=== PATIENT | female | born 1985 | race Caucasian/White ===

== ENCOUNTER 2021-02-12 05:49 | Day surgery (SDC) | payer BC ==
[2021-02-07 17:34] LABS: Hemoglobin 13.7 g/dL (12.0-15.5); Mean Corpuscular HGB CONC 33.3 g/dL (32.0-36.0); Mean Corpuscular Hemoglobin 30.4 pg (27.0-33.0); Mean Corpuscular Volume 91.6 fl (81.6-98.3); Mean Platelet Volume 9.6 fl (7.4-10.4); Platelet Count 244 10x3/uL (150-450); RBC Distribution Width 13.2 % (11.5-14.5); White Blood Cell (WBC) Count 6.6 10x3/uL (3.5-10.5)
[2021-02-07 17:38] LABS: BHCG - Serum Negative (NEGATIVE); Pregs Control Background? CLEAR/WHITE (CLR/WHITE); Pregs Control Bar Appear? YES (CONTROL BAR)
[2021-02-08 12:35] LABS: SARS-CoV-2 PCR by NAA Not Detected (NotDetected)
[2021-02-09 13:49] VITALS: BMI 31.9
[2021-02-12] MEDS ORDERED: CeleCOXIB 100 MG CAP ONE (06:25)
[2021-02-12] MEDS ORDERED: Gabapentin 300 MG CAP ONE (06:25)
[2021-02-12] MEDS ORDERED: Fentanyl 100 MCG/2 ML VIAL ONE (06:39)
[2021-02-12] MEDS ORDERED: PROPOFOL 20 ML ONE (06:39)
[2021-02-12] MEDS ORDERED: Lidocaine 2% PF 5 ML VIAL ONE (06:42)
[2021-02-12] MEDS ORDERED: Dexamethasone 4 mg/ml Vial ONE (06:42)
[2021-02-12] MEDS ORDERED: Rocuronium Bromide 10 MG/ML (10ML VIAL) ONE (06:42)
[2021-02-12] MEDS ORDERED: Ondansetron PF 4 MG/2 ML Vial ONE (06:42)
[2021-02-12] MEDS ORDERED: Bupivacaine PF 0.5% 30 ML VIAL ONE (06:49)
[2021-02-12] MEDS ORDERED: Famotidine/PF 20 mg/2ml Vial ONE (06:49)
[2021-02-12] MEDS ORDERED: EPINEPHrine 1 MG/ML AMP ONE (06:49)
[2021-02-12] MEDS ORDERED: Lidocaine 1% MPF 2 ML VIAL ONE (06:49)
[2021-02-12] MEDS ORDERED: Midazolam HCl 2 mg/2 ml Vial ONE (07:02)
[2021-02-12] MEDS ORDERED: ceFAZolin 2 GM/Dextrose 50 ML IVPB ONE (07:17)
[2021-02-12] MEDS ORDERED: Esmolol 100 MG/10 ML VIAL ONE (07:42)
[2021-02-12] MEDS ORDERED: Glycopyrrolate 0.2 MG/ML 5 ML SYRINGE ONE (09:03)
[2021-02-12] MEDS ORDERED: Morphine 4 MG/ML VIAL ONE (10:17)
[2021-02-12] MEDS ORDERED: HYDROcodone/Acetaminophen 5/325 mg Tablet ONE (10:48)
== END 2021-02-12 12:15 | disposition home or self-care (01) ==
LOC: CSHSDC 05:49
PROVIDERS: ATTEND Obstetrics & Gynecology
PROC: 0UT94ZZ Resection of Uterus, Percutaneous Endoscopic Approach (ICD-10-PCS; principal; 2021-02-12)
PROC: 0UT74ZZ Resection of Bilateral Fallopian Tubes, Percutaneous Endoscopic Approach (ICD-10-PCS; principal; 2021-02-12)
DX: N80.0 Endometriosis of uterus (principal); D25.9 Leiomyoma of uterus, unspecified; N73.6 Female pelvic peritoneal adhesions (postinfective); E66.9 Obesity, unspecified; Z68.33 Body mass index [BMI] 33.0-33.9, adult; Z87.891 Personal history of nicotine dependence; Z79.899 Other long term (current) drug therapy
CPT/HCPCS: 36415; 84703; 85027; 86850; 86900; 86901; 88307; J0171; J0690; J1100; J2001; J2250; J2270; J2405; J2704; J3010; S0020; S0028; U0003; U0005